=== PATIENT | male | born 1985 | race Caucasian/White ===

== ENCOUNTER 2024-03-05 12:41 | Emergency (ER) | payer BC, SELFPAY ==
[2024-03-05 12:47] VITALS: BP 122/80
--- NOTE | 2024-03-05 15:55 | ED.GENMED ---
History of Present Illness
<Jenifer Sandhu PA-C - Last Filed: 03/06/24 01:23>
General
Chief Complaint: Head Injury
Source: patient
Exam Limitations: none
Time Seen by Provider: 03/05/24 15:02
Nursing documentation reviewed up to this point in time: agreed with
History of Present Illness
History of Present Illness:
Patient is a 38-year-old male presenting to the emergency department for evaluation following head injury today. Patient states he was in a [place] bathroom around 10 AM this morning when he slipped and fell on water striking the front of his head on
the ground. Patient unsure if he lost consciousness. Patient describing headache, photophobia, mild neck discomfort and low back pain since fall. No vomiting or visual changes. No dizziness or ataxia. No numbness/tingling in extremities.
Patient ambulating without difficulty into emergency department. Patient denies any pain in his extremities.
Patient denies any blood thinners.
Past History
<Jenifer Sandhu PA-C - Last Filed: 03/06/24 01:23>
Past History
ED Past Medical History: None
ED Past Surgical History: None
Social History
Living: with family
Review of Systems
<Jenifer Sandhu PA-C - Last Filed: 03/06/24 01:23>
Review of Systems
Allergies reviewed?: Yes
All Other Systems: ROS reviewed and negative except as documented in HPI and ROS
Phy Exam
<VALDEZ Lyon Last Filed: 03/06/24 01:23>
Physical Exam
Physical Exam:
GENERAL: No acute distress
HEENT: atraumatic, extraocular muscles intact, visual oropeza intact, no signs of entrapment, dentition intact, no other obvious trauma
NECK: no midline tenderness, mild bilateral upper trapezius tenderness bilaterally, normal range of motion, no other obvious trauma
BACK: no midline tenderness, no other obvious trauma
CHEST: no tenderness, no flail segment, no subcutaneous emphysema, no other obvious trauma
LUNGS: clear to auscultation bilaterally
CARDIOVASCULAR: regular rate and rhythm
ABDOMEN: soft, non-tender, no masses, no other obvious trauma
PELVIS: stable, no obvious injury
EXTREMITIES: moving all extremities, distal pulses intact, no other obvious trauma
NEUROLOGIC: awake, alert x 3, no focal deficits. Normal finger-nose
Course
<Jenifer Sandhu PA-C - Last Filed: 03/06/24 01:23>
Orders/Labs/Results
Orders:
Orders
03/05/24 14:55
CT Head W/o Iv Contrast Stat
Comment:
Reason For Exam: fall
03/05/24 14:56
CT Cervical Spine W/o Iv Contr Stat
Comment:
Reason For Exam: fall
03/05/24 15:44
Acetaminophen [Tylenol] 1,000 mg PO NOW STA
Vital Signs
Initial and Last Documented VS:
Initial Vital Signs
Temp Pulse Resp BP Pulse Ox
98.5 F 94 34 122/80 98
03/05/24 12:47 03/05/24 12:47 03/05/24 12:47 03/05/24 12:47 03/05/24 12:47
Last Documented Vital Signs
Temp Pulse Resp BP Pulse Ox
98.5 F 94 34 122/80 98
03/05/24 12:47 03/05/24 12:47 03/05/24 12:47 03/05/24 12:47 03/05/24 12:47
<Aaron Olguin DO - Last Filed: 03/05/24 15:58>
Orders/Labs/Results
Orders:
Orders
03/05/24 14:55
CT Head W/o Iv Contrast Stat
Comment:
Reason For Exam: fall
03/05/24 14:56
CT Cervical Spine W/o Iv Contr Stat
Comment:
Reason For Exam: fall
03/05/24 15:44
Acetaminophen [Tylenol] 1,000 mg PO NOW STA
Vital Signs
Initial and Last Documented VS:
Initial Vital Signs
Temp Pulse Resp BP Pulse Ox
98.5 F 94 34 122/80 98
03/05/24 12:47 03/05/24 12:47 03/05/24 12:47 03/05/24 12:47 03/05/24 12:47
Last Documented Vital Signs
Temp Pulse Resp BP Pulse Ox
98.5 F 94 34 122/80 98
03/05/24 12:47 03/05/24 12:47 03/05/24 12:47 03/05/24 12:47 03/05/24 12:47
<Jenifer Sandhu PA-C - Last Filed: 03/06/24 01:23>
MDM/Problems Addressed
Differential Diagnosis Includes:
Not limited to: Concussion, contusion, intracerebral hemorrhage, skull fracture, cervical spine fracture, cervical muscle sprain, etc.
MDM/Problems Addressed:
38-year-old male presenting with headache, photophobia, neck discomfort after mechanical fall earlier with associated head strike. No vomiting, retrograde amnesia, numbness/tingling in extremities. Patient has stable vital signs. Physical exam as
above. Patient alert and oriented. No focal neurologic deficits. Patient has steady gait and fluid speech. Normal cerebellar exam. No midline spinal tenderness although mild paracervical spinal/trapezius tenderness. Low suspicion for acute
intracranial hemorrhage/abnormality. Do not suspect cervical spine fracture. CT head/cervical spine were initiated in triage reports pending. Tylenol for pain.
Update: CT report reviewed. No acute abnormalities noted. Ultimately�suspect likely cervical muscle strain and concussion. Patient without any neurologic deficits. Feel stable for discharge home with supportive care, primary care follow-up.
Return precautions discussed. Patient ambulating out of department without difficulty. Case discussed with attending physician.
Chronic conditions affecting care:
N/A
Acute Exacerbation and/or Progression of Chronic Illness:
N/A
<Jenifer Sandhu PA-C - Last Filed: 03/06/24 01:23>
*Radiology
Radiology exam reviewed: radiology read reviewed
*Pulse Oximetry
Patient hypoxic: no
*EKG
Interpreted by ED Provider?: NA
*Yarn Conditioner Interpretation
Rate: Yarn Conditioner- N/A
*Critical Care Note
Total Time (30-74mins, 75-104mins- exclusive of procedures): Not Applicable
ED Attending Note
<Jenifer Sandhu PA-C - Last Filed: 03/06/24 01:23>
-
Portions of this chart may have been created with voice recognition software.� Occasional wrong word or��sound alike� substitutions may have occurred due to the inherent limitations of voice recognition software.
<Aaron Olguin DO - Last Filed: 03/05/24 15:58>
ED Attending Note
I performed the substantive portion of visit, reviewed & personally made and approve the management plan that is documented in note by myself or SHERIE.: Yes
ED Attending Note:
CT negative. Patient seen ambulating in the emergency department with normal speech, normal gait and no focal motor deficits
Discharge Plan
Departure
Patient Disposition: Home (Routine Discharge)
Date of Disposition: 03/05/24
Time of Disposition: 16:31
Patient with high blood pressure during this ER visit?: No
Condition: Good
Discharge Problem:
Concussion, Cervical muscle strain
Instructions: Concussion, Adult (DC), Cervical Sprain ED
Prescriptions:
No Action
diazepam [Valium] 2 mg tablet
2 mg PO BID PRN (Reason: muscle spasm) Qty: 10 0RF
Referrals:
Palko,Jj, MD [Family Provider] - Follow up in 2-3 days
Activity Restrictions/Additional Instructions:
Return to the emergency department w/ any severe head/neck pain, vomiting, vision changes, confusion/change in mental status, persistent dizziness, numbness/tingling in extremities, worsening current symptoms, or any other
-As discussed�your head CT and cervical spine CT showed no acute fracture or bleeding. I suspect you likely have a concussion and a neck sprain.
-You should continue to take Tylenol and/or Motrin as needed for discomfort. Stay well-hydrated and get plenty of rest. Limit your screen time.
-Follow-up with your primary care in few days for further evaluation/management and to ensure that symptoms are improving
Monitor your symptoms closely and return to the emergency department with any acute worsening/new symptoms or any other concerns
Interventions
Interventions:
*Risk Screen - Suicide Last Done: 03/05/24 12:47
*General Assessment Last Done: 03/05/24 12:47
*Neglect/Abuse Screening Last Done: 03/05/24 12:47
*ED COVID-19 Vaccine History Last Done: 03/05/24 12:47
*Nursing Disposition Last Done: 03/05/24 16:53
ED- Neurological Assessment Last Done: 03/05/24 14:59
ED-Skin Assessment Last Done: 03/05/24 14:59
Discharge Date and Time
Discharge Date/Time: 03/05/24 16:54
Print Language: BARBADIAN
[2024-03-05] MEDS: TYLENOL 1000 MG PO (16:47)
== END 2024-03-05 16:54 | disposition home or self-care (01) ==
LOC: EMR 12:41
PROVIDERS: EMERGENCY PHYSICIAN Emergency Medicine; FAMILY PHYSICIAN Family Medicine
DX: S06.0XAA Concussion with loss of consciousness status unknown, initial encounter (principal); S16.1XXA Strain of muscle, fascia and tendon at neck level, initial encounter; W01.0XXA Fall on same level from slipping, tripping and stumbling without subsequent striking against object, initial encounter
CPT/HCPCS: 99284; 70450; 72125